=== PATIENT | male | born 1965 | race Caucasian/White ===

== ENCOUNTER → 2016-09-14 | Outpatient (REF) | payer BC ==
[~2016-09-14] MED LIST: GLUC500T OR; LISI20TA5 OR; PRAV20TA2 OR; VITAMIN B1 PO
== END ==
LOC: M LAB REF 16:50
PROVIDERS: ATTEND Nurse Practitioner Family
DX: K14.6 Glossodynia (principal)

== ENCOUNTER 2017-07-02 17:42 | Emergency (ER) | payer BC ==
[~2017-07-02] VITALS: Ht 177.8 cm; Wt 109.1 kg
[2017-07-02] MEDS ORDERED: TRUL0.5I SQ (18:05)
[2017-07-02] MEDS ORDERED: METF10004 (18:05)
[2017-07-02] MEDS ORDERED: GLIP1TAB51 (18:05)
--- NOTE | 2017-07-02 19:29 | REP ---
Head CT without contrast: History: Dizziness. Comparison study: Comparison CT study June 28, 2013. CT findings: Bone window settings demonstrate an intact bony calvarium. There is no evidence of skull fracture or incidental bony calvarial lesion. Mild vascular calcification is seen at the skull base. The visualized paranasal sinuses appear clear. No intraorbital abnormality is seen. On soft tissue window setting images; the lateral, third, and fourth ventricles are normal in size and position. Juarez-white differentiation pattern is normal above and below the tentorium. There are is no evidence of intracranial hemorrhage. No mass, edema, infarction, or midline shift is seen. No extra-axial fluid collection is appreciated. Impression: Mild vascular calcification, otherwise negative noncontrast head CT. Signed by Dennis Peguero MD 07/02/2017 07:19 P
[2017-07-02 19:35] LABS: BASO % 0.4 % (0.0-1.0); EOS # 0.2 10^3/uL (0.0-0.50); EOS % 3.5 % (0.0-3.0); IMMATURE GRANULOCYTE % 0.1 % (0-0); LYMPH # 1.6 10^3/uL (1.5-4.5); MEAN CORPUSCULAR HGB CONC 33.8 g/dl (32.0-36.5); MEAN CORPUSCULAR VOLUME 88.6 fl (80.0-96.0); MONO # 0.6 10^3/uL (0.0-0.8); MONO % 8.8 % (0.0-5.0); NEUTROPHILS # 4.4 10^3/uL (1.8-7.7); NEUTROPHILS % 64.2 % (36.0-66.0); PLATELET COUNT, AUTOMATED 240 10^3/uL (150-450); RED CELL DISTRIBUTION WIDTH 12.6 % (11.5-14.5); WHITE BLOOD COUNT 6.8 10^3/uL (4.0-10.0)
--- NOTE | 2017-07-02 19:58 | REP ---
Portable chest x-ray: Single view. History: Chest pain. Comparison study: April 10, 2015. Findings: EKG monitoring electrodes overlie the chest. Today's view is exposed at a somewhat lordotic angle. The lungs are well inflated and clear. Pulmonary vasculature is not felt to be increased. Heart is not enlarged. Impression: No active disease. Signed by Dennis Peguero MD 07/02/2017 08:36 P
[2017-07-02] MEDS ORDERED: NS 1,000 ML IV ONE (20:00)
[2017-07-02] MEDS ORDERED: MECLIZINE 25 MG TABLET PO ONE (20:00)
[2017-07-02] MEDS ORDERED: ASPIRIN 81 MG CHEW TABLET PO ONE (20:00)
[2017-07-02 20:02] LABS: ALBUMIN 3.9 GM/DL (3.2-5.2); ALKALINE PHOSPHATASE 102 U/L (45-117); ALT/SGPT 35 U/L (12-78); ANION GAP 8 MEQ/L (8-16); AST/SGOT 21 U/L (7-37); BILIRUBIN,DIRECT 0.1 MG/DL (0.0-0.2); BILIRUBIN,TOTAL 0.4 MG/DL (0.2-1.0); BLOOD UREA NITROGEN 14 MG/DL (7-18); CALCIUM LEVEL 9.4 MG/DL (8.5-10.1); CARBON DIOXIDE LEVEL 27 MEQ/L (21-32); CHLORIDE LEVEL 105 MEQ/L (98-107); FREE T4 0.98 NG/DL (0.76-1.46); GLOMERULAR FILTRATION RATE > 60.0 (>56); GLUCOSE, FASTING 119 MG/DL (70-105); POTASSIUM SERUM 4.2 MEQ/L (3.5-5.1); SODIUM LEVEL 140 MEQ/L (136-145); TOTAL PROTEIN 7.8 GM/DL (6.4-8.2)
[2017-07-02 21:21] LABS: INR 0.96
--- NOTE | 2017-07-03 03:20 | REPUSA ---
CLINICAL HISTORY: Dizziness. TECHNIQUE: Three dimensional csuo-iv-pysepx angiography is performed of the [place]. The faheem dy was performed without IV contrast agent. FINDINGS: The supraclinoid portions of the internal carotid arteries are of normal shape. The normal bifurcation is seen. The middle cerebral arteries are unremarkable in appearance. The posterior circu lation is visualized and shows no evidence of occlusion or aneurysm formation. The basilar tip is see n and shows no aneurysm formation. There is no evidence of beading to suggest vasculitis. IMPRESSION: MRA of the [place] is within normal limits. Thank you for your kind referral of this patient.
--- NOTE | 2017-07-03 03:30 | REPUSA ---
CLINICAL HISTORY: Dizziness. TECHNIQUE: MRI of the brain was performed utilizing multiple sequences in axial, coronal and sagittal planes without IV contrast material. COMMENTS: The sella and parasellar region are unremarkable in appearance. The corpus callosum and cerebellar to nsils are of normal configuration and position. There are no intra or extra-axial collections. There is no mass effect or midline shift. There is no evidence of hematoma formation. There is no hydroceph alus. The visualized arterial structures demonstrate normal appearing flow voids. The seventh and eighth ne rve bundles are visualized and are unremarkable in appearance. Several foci of T2/FLAIR hyperintensity are noted in the bilateral periventricular and subcortical wh ite matter compatible with mild chronic white matter ischemic changes. Generalized proportionate dilatation of ventricles and sulci is present compatible with age-appropria te parenchymal atrophy. IMPRESSION: 1. No acute intracranial pathology. 2. Generalized age-appropriate parenchymal atrophy. 3. Mild chronic white matter microvascular ischemic changes. Thank you for your kind referral of this patient.
[2017-07-03 03:42] VITALS: BP 143/77
[2017-07-03] MEDS ORDERED: VALI5TAB PO (03:42)
[2017-07-03] MEDS ORDERED: FLON1SPR (03:42)
--- NOTE | 2017-07-03 05:40 | ECGEPIP ---
Stationary ECG Study [facility] - ED Test Date: 2017-07-02 Pat Name: KATI NIETO Department: Room: - Gender: M Ladler: ASHER : 1965 Requested By: Mumtaz Campoverde Order Number: [id number] Reading MD: Macho Mcgregor Measurements Intervals [place] Rate: 81 P: 7 VT: 243 QRS: 74 QRSD: 105 T: 2 QT: 374 QTc: 435 Interpretive Statements SINUS RHYTHM WITH FIRST DEGREE AV BLOCK INFERIOR MYOCARDIAL INFARCTION, PROBABLY OLD WITH POSTERIOR EXTENSION SIMILAR TO 04/10/15 Electronically Signed On 07-03-2017 5:40:20 EST by Macho Mcgregor
== END 2017-07-03 04:03 | disposition home or self-care (01) ==
LOC: M ED 17:42
DX: H83.02 Labyrinthitis, left ear (principal); I44.0 Atrioventricular block, first degree; E11.9 Type 2 diabetes mellitus without complications; I10 Essential (primary) hypertension; Z88.5 Allergy status to narcotic agent; Z79.899 Other long term (current) drug therapy; Z79.84 Long term (current) use of oral hypoglycemic drugs
CPT/HCPCS: 70450; 70544; 70551; 71010; 80048; 80076; 82550; 82553; 84439; 84443; 85025; 85610; 85730; 93005; 93041; 94760; 96361; 96374; 99285; J3360

== ENCOUNTER → 2018-06-17 | Outpatient (REF) | payer BC ==
[2018-06-18 15:15] LABS: TESTOSTERONE FREE (DIRECT) 7.6 pg/mL (7.2-24.0)
== END ==
LOC: M LAB REF 11:50
DX: R53.83 Other fatigue (principal)
CPT/HCPCS: 84403

== ENCOUNTER → 2018-07-01 | Outpatient (REF) | payer BC ==
[2018-07-01 12:54] LABS: TESTOSTERONE 132 NG/DL (241-827)
== END ==
LOC: M LAB REF 11:58
DX: E29.1 Testicular hypofunction (principal)
CPT/HCPCS: 84403

== ENCOUNTER 2018-08-28 09:10 | Day surgery (SDC) | payer BC ==
[~2018-08-28] VITALS: Ht 177.8 cm; Wt 111.6 kg
[~2018-08-28 09:10] MED LIST changes: +FLON1SPR; +GLIP10TA18; +GLIP5TAB20 PO; +LISI-538 PO; +METF10004; +METF10004 PO; +NS 1,000 ML IV ONE; +PRAV10TA4 PO; +TEST200I14 IM; +TRUL0.5I SC; +TRUL0.5I SQ; +VALI5TAB PO
[2018-08-28] MEDS ORDERED: LIDOCAINE 2% INJ 100 MG/5 ML SDV (FOR ANES.) As Ordered ONE (11:01)
[2018-08-28] MEDS ORDERED: PROPOFOL 500 MG/50 ML VIAL As Ordered ONE (11:01)
[2018-08-28] MEDS ORDERED: fentaNYL 100 MCG/2 ML INJECTION (J3010) As Ordered ONE (11:01)
--- NOTE | 2018-08-28 11:16 | ROOR ---
Patient Name: Cornelius Gaitan Procedure Date: 08/28/2018 10:53 AM Date of : 1965 Age: 52 Room: [facility] Gender: Male Note Status: Finalized Procedure: Upper Endoscopy + Biopsies + Hemoclip Indications: Heartburn, Follow-up of peptic ulcer Providers: Stewart Gonzales MD Referring MD: Natacha Hyde NP Requesting Provider: Medicines: Monitored Anesthesia Care Complications: No immediate complications. Procedure: Pre-Anesthesia Assessment: - The heart rate, respiratory rate, oxygen saturations, blood pressure, adequacy of pulmonary ventilation, and response to care were monitored throughout the procedure. The Endoscope was introduced through the mouth, and advanced to the second part of duodenum. The upper GI endoscopy was accomplished without difficulty. The patient tolerated the procedure well. Findings: The Z-line was irregular and was found 40 cm from the incisors. Multiple biopsies were obtained with cold forceps for evaluation to rule out Ashford's Esophagus randomly at the gastroesophageal junction. A small hiatal hernia was present. One non-bleeding cratered gastric ulcer with pigmented material was found on the greater curvature of the stomach. Biopsies were taken with a cold forceps for histology. Biopsies were taken with a cold forceps for Helicobacter pylori testing. To prevent bleeding after the biopsy, one hemostatic clip was successfully placed. There was no bleeding at the end of the procedure. The exam of the duodenum was otherwise normal. Impression: - Z-line irregular, 40 cm from the incisors. - Small hiatal hernia. - Non-bleeding gastric ulcer with pigmented material. Biopsied. Clip was placed. - Multiple biopsies were obtained at the gastroesophageal junction. - The examination was otherwise normal. Recommendation: - Patient has a contact number available for emergencies. The signs and symptoms of potential delayed complications were discussed with the patient. Return to normal activities tomorrow. Written discharge instructions were provided to the patient. - Discharge patient to home. - Follow an antireflux regimen. - Use Prilosec (omeprazole) 40 mg PO daily. - Await pathology results. - Check Portal Online for Path Results.([email or web address]) - Telephone GI clinic for pathology results in 1 week. - The findings and recommendations were discussed with the patient's family. Stewart Gonzales MD Stewart Gonzales MD 08/28/2018 11:16:25 AM This report has been signed electronically. Number of Addenda: 0 Note Initiated On: 08/28/2018 10:53 AM Estimated Blood Loss: Estimated blood loss: none.
--- NOTE | 2018-08-28 11:34 | ROOR ---
Patient Name: Cornelius Gaitan Procedure Date: 08/28/2018 10:54 AM Date of : 1965 Age: 52 Room: [facility] Gender: Male Note Status: Finalized Procedure: Total Colonoscopy to the Cecum + Cold Snare Polypectomy Indications: Screening for colorectal malignant neoplasm Providers: Stewart Gonzales MD Referring MD: Natacha Hyde NP Requesting Provider: Medicines: Monitored Anesthesia Care Complications: No immediate complications. Procedure: Pre-Anesthesia Assessment: - The heart rate, respiratory rate, oxygen saturations, blood pressure, adequacy of pulmonary ventilation, and response to care were monitored throughout the procedure. The Colonoscope was introduced through the anus and advanced to the cecum, identified by appendiceal orifice and ileocecal valve. The colonoscopy was performed without difficulty. The patient tolerated the procedure well. The quality of the bowel preparation was excellent. Findings: The perianal and digital rectal examinations were normal. Non-bleeding internal hemorrhoids were found during retroflexion. The hemorrhoids were small and Grade I (internal hemorrhoids that do not prolapse). A small polyp was found in the ascending colon. The polyp was sessile. The polyp was removed with a jumbo cold forceps. Resection and retrieval were complete. The exam was otherwise without abnormality on direct and retroflexion views. Impression: - Non-bleeding internal hemorrhoids. - One small polyp in the ascending colon, removed with a jumbo cold forceps. Resected and retrieved. - The examination was otherwise normal on direct and retroflexion views. - The exam was otherwise normal to the cecum. Recommendation: - Patient has a contact number available for emergencies. The signs and symptoms of potential delayed complications were discussed with the patient. Return to normal activities tomorrow. Written discharge instructions were provided to the patient. - High fiber diet. - Discharge patient to home. - Continue present medications. - Await pathology results. - Telephone GI clinic for pathology results in 1 week. - Repeat colonoscopy in 5 years for surveillance based on pathology results. - Return to referring physician. - Check Portal Online for Path Results.([email or web address] - The findings and recommendations were discussed with the patient's family. Stewart Gonzales MD Stewart Gonzales MD 08/28/2018 11:33:41 AM This report has been signed electronically. Number of Addenda: 0 Note Initiated On: 08/28/2018 10:54 AM Estimated Blood Loss: Estimated blood loss: none.
[2018-08-28 12:00] VITALS: BP 127/77
== END 2018-08-28 12:04 | disposition home or self-care (01) ==
LOC: M OPP 09:10
PROVIDERS: ATTEND Internal Medicine Gastroenterology
DX: Z12.11 Encounter for screening for malignant neoplasm of colon (principal); R12 Heartburn; K27.9 Peptic ulcer, site unspecified, unspecified as acute or chronic, without hemorrhage or perforation; D12.2 Benign neoplasm of ascending colon; K64.0 First degree hemorrhoids; K22.8 Other specified diseases of esophagus; K44.9 Diaphragmatic hernia without obstruction or gangrene; E11.9 Type 2 diabetes mellitus without complications; Z79.84 Long term (current) use of oral hypoglycemic drugs; Z79.899 Other long term (current) drug therapy; Z88.5 Allergy status to narcotic agent
CPT/HCPCS: 43239; 45380; 88305; J3010

== ENCOUNTER → 2018-09-09 | Outpatient (REF) | payer BC ==
[~2018-09-09] MED LIST changes: -NS 1,000 ML IV ONE
== END ==
LOC: M LAB REF 16:38
PROVIDERS: ATTEND Nurse Practitioner Adult Health
DX: E29.1 Testicular hypofunction (principal)

== ENCOUNTER → 2018-12-23 | Outpatient (REF) | payer BC ==
[2018-12-25 00:08] LABS: TESTOSTERONE FREE (DIRECT) 16.5 pg/mL (7.2-24.0)
== END ==
LOC: M LAB REF 12:10
PROVIDERS: ATTEND Nurse Practitioner Adult Health
DX: E29.1 Testicular hypofunction (principal)

== ENCOUNTER → 2020-09-15 | Outpatient (REF) | payer BC, OTHER ==
[~2020-09-15] MED LIST changes: -LISI-538 PO; +LISI20TA33 PO
[2020-09-17 18:08] LABS: TESTOSTERONE FREE (DIRECT) 10.1 pg/mL (7.2-24.0)
== END ==
LOC: M LAB REF 16:32
PROVIDERS: ATTEND Nurse Practitioner Adult Health
DX: E29.1 Testicular hypofunction (principal)

== ENCOUNTER → 2021-01-17 | Outpatient (REF) | payer BC, OTHER | LOC: M LAB REF 16:23 | PROVIDERS: ATTEND Nurse Practitioner Adult Health | DX: E29.1 Testicular hypofunction (principal) ==

== ENCOUNTER 2022-07-16 16:57 | Emergency (ER) | payer BC, OTHER ==
[~2022-07-16] VITALS: Ht 177.8 cm; Wt 110.5 kg
[2022-07-16] MEDS ORDERED: OZEM2INJ SQ (17:16)
[2022-07-16] MEDS ORDERED: GABA-282 PO (17:16)
[2022-07-17] MEDS ORDERED: NAPROXEN 250 MG TAB PO ONE (01:30)
[2022-07-17] MEDS ORDERED: NAPR-837 PO (01:36)
[2022-07-17 01:56] VITALS: BP 119/76
== END 2022-07-17 02:25 | disposition home or self-care (01) ==
LOC: M ED 16:57
DX: S63.92XA Sprain of unspecified part of left wrist and hand, initial encounter (principal); E11.9 Type 2 diabetes mellitus without complications; Z79.84 Long term (current) use of oral hypoglycemic drugs; Z79.811 Long term (current) use of aromatase inhibitors; Z79.899 Other long term (current) drug therapy; Z88.5 Allergy status to narcotic agent

== ENCOUNTER → 2022-12-08 | Outpatient (CLI) | payer OTHER ==
[~2022-12-08] MED LIST changes: +GABA-282 PO; +NAPR-837 PO; +OZEM2INJ SQ
== END ==
LOC: M PLAIMG 14:30
PROVIDERS: ATTEND Orthopaedic Surgery Hand Surgery
DX: S69.92XD Unspecified injury of left wrist, hand and finger(s), subsequent encounter (principal)

== ENCOUNTER → 2023-01-11 | Outpatient (CLI) | payer OTHER | LOC: M PAIN 09:30 | PROVIDERS: ATTEND Nurse Practitioner Family | DX: M54.41 Lumbago with sciatica, right side (principal); M54.42 Lumbago with sciatica, left side; I10 Essential (primary) hypertension; E11.9 Type 2 diabetes mellitus without complications; E78.00 Pure hypercholesterolemia, unspecified; Z79.84 Long term (current) use of oral hypoglycemic drugs; Z79.899 Other long term (current) drug therapy; Z88.5 Allergy status to narcotic agent ==

== ENCOUNTER → 2023-01-25 | Outpatient (CLI) | payer OTHER | LOC: M PAIN 15:15 | PROVIDERS: ATTEND Nurse Practitioner Family | DX: M51.16 Intervertebral disc disorders with radiculopathy, lumbar region (principal); I10 Essential (primary) hypertension; E11.9 Type 2 diabetes mellitus without complications; Z88.5 Allergy status to narcotic agent; Z79.84 Long term (current) use of oral hypoglycemic drugs; Z79.85 Long-term (current) use of injectable non-insulin antidiabetic drugs; Z79.899 Other long term (current) drug therapy ==

== ENCOUNTER → 2023-02-19 | Outpatient (CLI) | payer OTHER | LOC: M PAIN 08:30 | PROVIDERS: ATTEND Nurse Practitioner Family | DX: M51.16 Intervertebral disc disorders with radiculopathy, lumbar region (principal); I10 Essential (primary) hypertension; E11.9 Type 2 diabetes mellitus without complications; E78.00 Pure hypercholesterolemia, unspecified; Z79.85 Long-term (current) use of injectable non-insulin antidiabetic drugs; Z79.02 Long term (current) use of antithrombotics/antiplatelets; Z79.84 Long term (current) use of oral hypoglycemic drugs; Z79.899 Other long term (current) drug therapy; Z88.5 Allergy status to narcotic agent ==

== ENCOUNTER → 2023-02-27 | Outpatient (CLI) | payer OTHER | LOC: M SOG 07:51 | PROVIDERS: ATTEND Physician Assistant | DX: M25.562 Pain in left knee (principal); Z53.9 Procedure and treatment not carried out, unspecified reason ==

== ENCOUNTER → 2023-04-03 | Outpatient (CLI) | payer OTHER | LOC: M PAIN 16:00 | PROVIDERS: ATTEND Nurse Practitioner Family | DX: M51.16 Intervertebral disc disorders with radiculopathy, lumbar region (principal); E11.9 Type 2 diabetes mellitus without complications; G47.30 Sleep apnea, unspecified; I10 Essential (primary) hypertension; Z88.5 Allergy status to narcotic agent; Z79.84 Long term (current) use of oral hypoglycemic drugs; Z79.85 Long-term (current) use of injectable non-insulin antidiabetic drugs; Z79.899 Other long term (current) drug therapy ==

== ENCOUNTER → 2023-04-30 | Outpatient (REF) | payer BC, OTHER ==
[~2023-04-30] MED LIST changes: +ATOR80TA59 PO; +BAYE81TA7 PO; +FINE10TA PO; +PERC5TAB12 PO; +SEMA1PEN2 SQ
[2023-05-01 16:08] LABS: TESTOSTERONE FREE (DIRECT) 1.9 pg/mL (7.2-24.0)
== END ==
LOC: M LAB REF 12:13
PROVIDERS: ATTEND Nurse Practitioner Adult Health
DX: E29.1 Testicular hypofunction (principal)

== ENCOUNTER → 2023-05-10 | Outpatient (CLI) | payer OTHER ==
[~2023-05-10] MED LIST changes: +NORCO, ANEXSIA 5/325MG TABLET (HYDROcodone/ACETAMINOPHEN) As Ordered ONE; +TRIAMCINOLONE ACETONIDE SUSP 40MG/ML 1ML VIAL As Ordered ONE; +diazePAM 5MG TABLET As Ordered ONE
== END ==
LOC: M PAIN 14:15
PROVIDERS: ATTEND Anesthesiology
DX: M79.18 Myalgia, other site (principal); G89.29 Other chronic pain; E11.9 Type 2 diabetes mellitus without complications; Z88.5 Allergy status to narcotic agent; Z79.84 Long term (current) use of oral hypoglycemic drugs; Z79.899 Other long term (current) drug therapy
CPT/HCPCS: 20552; J0665; J3301

== ENCOUNTER 2023-05-14 06:43 | Day surgery (SDC) | payer OTHER ==
[~2023-05-14] VITALS: Ht 177.8 cm; Wt 108.0 kg
[~2023-05-14 06:43] MED LIST changes: -FINE10TA PO; -NORCO, ANEXSIA 5/325MG TABLET (HYDROcodone/ACETAMINOPHEN) As Ordered ONE; -PERC5TAB12 PO; -TRIAMCINOLONE ACETONIDE SUSP 40MG/ML 1ML VIAL As Ordered ONE; +ceFAZolin SOD 2 GM in IV 1 EA IV ONE; -diazePAM 5MG TABLET As Ordered ONE
[2023-05-14] MEDS ORDERED: FINE10TA PO (07:30)
[2023-05-14] MEDS ORDERED: LR 1,000 ML IV SCH ×2 (07:40→09:55)
[2023-05-14] MEDS ORDERED: propofoL 200 MG/20 ML VIAL As Ordered ONE (08:00)
[2023-05-14] MEDS ORDERED: LIDOCAINE 2% 100MG/5ML SDV (FOR ANES.) As Ordered ONE (08:00)
[2023-05-14] MEDS ORDERED: KETOROLAC 60MG 2ML VIAL As Ordered ONE (08:00)
[2023-05-14] MEDS ORDERED: ONDANSETRON 4MG 2ML VIAL As Ordered ONE (08:00)
[2023-05-14] MEDS ORDERED: fentaNYL 100 MCG/2 ML INJECTION As Ordered ONE (08:01)
[2023-05-14] MEDS ORDERED: MIDAZOLAM INJ 2MG/2ML VIAL As Ordered ONE (08:01)
[2023-05-14] MEDS ORDERED: BACITRACIN OINTMENT 30GM TUBE As Ordered ONE (09:40)
[2023-05-14] MEDS ORDERED: oxyCODONE 5MG TAB PO PRN (09:55)
[2023-05-14] MEDS ORDERED: fentaNYL 100 MCG/2 ML INJECTION IV PRN (09:55)
[2023-05-14] MEDS ORDERED: ONDANSETRON 4MG 2ML VIAL IV PRN (09:55)
[2023-05-14] MEDS ORDERED: INSULIN LISPRO (NovoLOG) PER UNIT SC PRN (10:05)
[2023-05-14] MEDS ORDERED: PERC5TAB12 PO (10:05)
[2023-05-14] MEDS: HYDROMORPHONE HCL 0.5 MG/ 0.5 ML SYRINGE IV PRN ×4 (10:12→10:35)
[2023-05-14 12:15] VITALS: BP 135/79; TEMP 98.2; O2SAT 97
[2023-05-14] MEDS ORDERED: ONDANSETRON 4MG 2ML VIAL IV ONE (12:25)
== END 2023-05-14 12:26 | disposition home or self-care (01) ==
LOC: M SDC 06:43
PROVIDERS: ATTEND Orthopaedic Surgery Hand Surgery
DX: M25.532 Pain in left wrist (principal); S56.512A Strain of other extensor muscle, fascia and tendon at forearm level, left arm, initial encounter; X58.XXXA Exposure to other specified factors, initial encounter; I10 Essential (primary) hypertension; E78.00 Pure hypercholesterolemia, unspecified; E11.21 Type 2 diabetes mellitus with diabetic nephropathy; E11.69 Type 2 diabetes mellitus with other specified complication; G47.33 Obstructive sleep apnea (adult) (pediatric); I25.119 Atherosclerotic heart disease of native coronary artery with unspecified angina pectoris; Z98.61 Coronary angioplasty status; Z95.5 Presence of coronary angioplasty implant and graft; Z79.02 Long term (current) use of antithrombotics/antiplatelets; Z79.84 Long term (current) use of oral hypoglycemic drugs; Z79.899 Other long term (current) drug therapy; Z79.82 Long term (current) use of aspirin
CPT/HCPCS: 25270; 88304; J0665; J0690; J1100; J1170; J1815; J1885; J2250; J2405; J3010

== ENCOUNTER → 2023-05-22 | Outpatient (CLI) | payer OTHER ==
[~2023-05-22] MED LIST changes: +FINE10TA PO; +PERC5TAB12 PO; -ceFAZolin SOD 2 GM in IV 1 EA IV ONE
== END ==
LOC: M PAIN 16:00
PROVIDERS: ATTEND Nurse Practitioner Family
DX: M79.18 Myalgia, other site (principal); M51.16 Intervertebral disc disorders with radiculopathy, lumbar region; G89.29 Other chronic pain; I10 Essential (primary) hypertension; E11.9 Type 2 diabetes mellitus without complications; E78.00 Pure hypercholesterolemia, unspecified; Z79.02 Long term (current) use of antithrombotics/antiplatelets; Z79.82 Long term (current) use of aspirin; Z79.84 Long term (current) use of oral hypoglycemic drugs; Z79.899 Other long term (current) drug therapy; Z88.5 Allergy status to narcotic agent

== ENCOUNTER → 2023-06-14 | Outpatient (CLI) | payer OTHER | LOC: M PAIN 10:00 | PROVIDERS: ATTEND Nurse Practitioner Family | DX: M51.16 Intervertebral disc disorders with radiculopathy, lumbar region (principal); G89.29 Other chronic pain; Z88.5 Allergy status to narcotic agent; Z79.84 Long term (current) use of oral hypoglycemic drugs; Z79.85 Long-term (current) use of injectable non-insulin antidiabetic drugs; Z79.899 Other long term (current) drug therapy ==

== ENCOUNTER → 2023-08-14 | Outpatient (CLI) | payer OTHER | LOC: M PAIN 16:30 | PROVIDERS: ATTEND Nurse Practitioner Family | DX: M51.16 Intervertebral disc disorders with radiculopathy, lumbar region (principal); G89.29 Other chronic pain; I10 Essential (primary) hypertension; E11.9 Type 2 diabetes mellitus without complications; E78.00 Pure hypercholesterolemia, unspecified; Z79.02 Long term (current) use of antithrombotics/antiplatelets; Z79.84 Long term (current) use of oral hypoglycemic drugs; Z79.899 Other long term (current) drug therapy; Z88.5 Allergy status to narcotic agent ==

== ENCOUNTER → 2023-08-31 | Outpatient (CLI) | payer OTHER | LOC: M PAIN 13:00 | PROVIDERS: ATTEND Anesthesiology | DX: M51.16 Intervertebral disc disorders with radiculopathy, lumbar region (principal); G89.29 Other chronic pain; I10 Essential (primary) hypertension; E11.9 Type 2 diabetes mellitus without complications; E78.00 Pure hypercholesterolemia, unspecified; I25.10 Atherosclerotic heart disease of native coronary artery without angina pectoris; Z79.82 Long term (current) use of aspirin; Z79.02 Long term (current) use of antithrombotics/antiplatelets; Z79.84 Long term (current) use of oral hypoglycemic drugs; Z79.899 Other long term (current) drug therapy; Z88.5 Allergy status to narcotic agent ==

== ENCOUNTER 2023-09-28 08:58 | Day surgery (SDC) | payer OTHER ==
[~2023-09-28] VITALS: Ht 177.8 cm; Wt 113.0 kg
[~2023-09-28 08:58] MED LIST changes: +BACITRACIN OINTMENT 30GM TUBE As Ordered ONE; +CLOP75TA2 PO; +TIRZ5PEN PO
[2023-09-28] MEDS: SODIUM BICARBONATE 8.4% INJ 50MEQ 50ML VIAL XX ONE (09:40)
[2023-09-28] MEDS: LIDOCAINE W/EPINEPHRINE 1% 20ML VIAL XX ONE (09:40)
[2023-09-28 10:56] VITALS: BP 141/87; TEMP 97.8; O2SAT 94
== END 2023-09-28 11:18 | disposition home or self-care (01) ==
LOC: M SDC 08:58
PROVIDERS: ATTEND Orthopaedic Surgery Hand Surgery
DX: M65.4 Radial styloid tenosynovitis [de Quervain] (principal); E11.9 Type 2 diabetes mellitus without complications; I10 Essential (primary) hypertension; E78.00 Pure hypercholesterolemia, unspecified; Z95.5 Presence of coronary angioplasty implant and graft; G47.30 Sleep apnea, unspecified; Z79.899 Other long term (current) drug therapy; Z79.82 Long term (current) use of aspirin; Z79.84 Long term (current) use of oral hypoglycemic drugs; Z79.85 Long-term (current) use of injectable non-insulin antidiabetic drugs; Z88.5 Allergy status to narcotic agent

== ENCOUNTER → 2023-10-10 | Outpatient (CLI) | payer OTHER ==
[~2023-10-10] MED LIST changes: -BACITRACIN OINTMENT 30GM TUBE As Ordered ONE
== END ==
LOC: M PAIN 13:30
PROVIDERS: ATTEND Anesthesiology
DX: M51.16 Intervertebral disc disorders with radiculopathy, lumbar region (principal); G89.29 Other chronic pain; I10 Essential (primary) hypertension; E11.9 Type 2 diabetes mellitus without complications; G47.30 Sleep apnea, unspecified; Z95.5 Presence of coronary angioplasty implant and graft; Z79.01 Long term (current) use of anticoagulants; Z79.02 Long term (current) use of antithrombotics/antiplatelets; Z79.82 Long term (current) use of aspirin; Z79.84 Long term (current) use of oral hypoglycemic drugs; Z79.899 Other long term (current) drug therapy; Z88.5 Allergy status to narcotic agent

== ENCOUNTER → 2023-10-30 | Outpatient (CLI) | payer OTHER | LOC: M PAIN 16:30 | PROVIDERS: ATTEND Nurse Practitioner Family | DX: M51.16 Intervertebral disc disorders with radiculopathy, lumbar region (principal); G89.29 Other chronic pain; I10 Essential (primary) hypertension; E11.9 Type 2 diabetes mellitus without complications; E78.00 Pure hypercholesterolemia, unspecified; I25.10 Atherosclerotic heart disease of native coronary artery without angina pectoris; Z79.82 Long term (current) use of aspirin; Z79.02 Long term (current) use of antithrombotics/antiplatelets; Z79.84 Long term (current) use of oral hypoglycemic drugs; Z79.899 Other long term (current) drug therapy; Z88.5 Allergy status to narcotic agent ==

== ENCOUNTER 2023-11-17 02:04 | Emergency (ER) | payer BC, OTHER ==
[~2023-11-17] VITALS: Ht 177.8 cm; Wt 113.6 kg
[2023-11-17] MEDS ORDERED: BENZ200C70 PO (02:33)
[2023-11-17] MEDS ORDERED: PRED20TA PO (02:33)
[2023-11-17] MEDS ORDERED: ALBU2.5V10 INH (02:33)
[2023-11-17] MEDS ORDERED: MORPHINE 2 MG/ML 1ML VIAL As Ordered ONE (02:36)
[2023-11-17] MEDS: ONDANSETRON 4MG 2ML VIAL IV ONE (02:57)
[2023-11-17] MEDS: MORPHINE 4 MG/ML 1ML VIAL IV PRN (02:58)
[2023-11-17] MEDS: KETOROLAC 30 MG/ML 1ML VIAL IV ONE (03:06)
[2023-11-17 03:30] LABS: BASO % 0.1 % (0.0-1.0); EOS % 0.5 % (0.0-3.0); HEMATOCRIT 45.6 % (42.0-52.0); HEMOGLOBIN 15.9 g/dl (13.5-17.5); LYMPH # 1.6 10^3/uL (1.5-5.0); LYMPH % 19.2 % (24.0-44.0); MEAN CORPUSCULAR HEMOGLOBIN 31.2 pg (27.0-33.0); MEAN CORPUSCULAR HGB CONC 34.9 g/dl (32.0-36.5); MEAN CORPUSCULAR VOLUME 89.4 fl (80.0-96.0); MONO # 0.3 10^3/uL (0.0-0.8); MONO % 3.2 % (2.0-8.0); NEUTROPHILS # 6.2 10^3/uL (1.5-8.5); NEUTROPHILS % 76.5 % (36.0-66.0); PLATELET COUNT, AUTOMATED 227 10^3/uL (150-450); WHITE BLOOD COUNT 8.1 10^3/uL (4.0-10.0)
[2023-11-17 03:57] LABS: BLOOD UREA NITROGEN 29 MG/DL (9-23); CALCIUM LEVEL 9.5 MG/DL (8.5-10.1); CARBON DIOXIDE LEVEL 22 MMOL/L (20-31); CHLORIDE LEVEL 104 MMOL/L (98-107); CREATININE FOR GFR 0.84 MG/DL (0.70-1.30); GLOMERULAR FILTRATION RATE > 60.0 (>56); GLUCOSE, FASTING 350 MG/DL (60-100); POTASSIUM SERUM 4.9 MMOL/L (3.5-5.1); SODIUM LEVEL 137 MMOL/L (136-145)
[2023-11-17] MEDS ORDERED: PERC5TAB12 PO (05:54)
[2023-11-17] MEDS ORDERED: KETO10TAB PO (05:54)
[2023-11-17] MEDS ORDERED: FLOM0.4C39 PO (05:54)
[2023-11-17 06:04] VITALS: BP 151/71; TEMP 97.7; O2SAT 94
[2023-11-17] MEDS: TAMSULOSIN 0.4 MG CAP PO ONE (06:06)
[2023-11-17] MEDS: OXYCODONE/APAP 5MG/325MG(HOME DOSE PACK) PO ONE (06:09)
== END 2023-11-17 06:21 | disposition home or self-care (01) ==
LOC: M ED 02:04
DX: N20.1 Calculus of ureter (principal); E11.9 Type 2 diabetes mellitus without complications; E78.5 Hyperlipidemia, unspecified; F10.10 Alcohol abuse, uncomplicated; Z86.79 Personal history of other diseases of the circulatory system; Z87.442 Personal history of urinary calculi; Z88.5 Allergy status to narcotic agent; Z79.52 Long term (current) use of systemic steroids; Z79.82 Long term (current) use of aspirin; Z79.02 Long term (current) use of antithrombotics/antiplatelets; Z79.811 Long term (current) use of aromatase inhibitors; Z79.4 Long term (current) use of insulin; Z79.899 Other long term (current) drug therapy
CPT/HCPCS: 74176; 76870; 80048; 81001; 85025; 93976; 96374; 96375; 99284; J1885; J2405

== ENCOUNTER → 2023-11-20 | Outpatient (REF) | payer BC ==
[~2023-11-20] MED LIST changes: +ALBU2.5V10 INH; +BENZ200C70 PO; +FLOM0.4C39 PO; +KETO10TAB PO; +PRED20TA PO
== END ==
LOC: M LAB REF 16:23
PROVIDERS: ATTEND Nurse Practitioner Adult Health
DX: N20.0 Calculus of kidney (principal)

== ENCOUNTER → 2023-12-10 | Outpatient (REF) | payer BC ==
[~2023-12-10] MED LIST changes: +ALBU10.7 INH; +GLIP10TA18 PO; +LISI10TA22 PO
[2023-12-12 10:11] LABS: TESTOSTERONE FREE (DIRECT) 4.2 pg/mL (7.2-24.0)
[2023-12-12 23:07] LABS: LDL DIRECT 67 mg/dL (0-99)
== END ==
LOC: M LAB REF 16:09
PROVIDERS: ATTEND Nurse Practitioner Adult Health
DX: E78.00 Pure hypercholesterolemia, unspecified (principal); E29.1 Testicular hypofunction

== ENCOUNTER 2023-12-14 07:04 | Day surgery (SDC) | payer OTHER ==
[~2023-12-14] VITALS: Ht 177.8 cm; Wt 112.0 kg
[2023-12-14] MEDS ORDERED: fentaNYL 100 MCG/2 ML INJECTION As Ordered ONE (07:27)
[2023-12-14] MEDS ORDERED: MIDAZOLAM INJ 2MG/2ML VIAL As Ordered ONE (07:27)
[2023-12-14] MEDS ORDERED: ACETAMINOPHEN 1000MG 100ML IV BAG As Ordered ONE (07:28)
[2023-12-14] MEDS ORDERED: ONDANSETRON 4MG 2ML VIAL As Ordered ONE (07:28)
[2023-12-14] MEDS ORDERED: propofoL 200 MG/20 ML VIAL As Ordered ONE (07:28)
[2023-12-14] MEDS ORDERED: LIDOCAINE 2% 100MG/5ML SDV (FOR ANES.) As Ordered ONE (07:28)
[2023-12-14] MEDS ORDERED: KETOROLAC 60MG 2ML VIAL As Ordered ONE (07:28)
[2023-12-14] MEDS ORDERED: LR 1,000 ML IV SCH (07:50)
[2023-12-14] MEDS ORDERED: KETAMINE HCL 200MG/20ML VIAL As Ordered ONE (07:58)
[2023-12-14] MEDS ORDERED: GLYCOPYRROLATE INJ 0.2 MG/ML 2 ML VIAL As Ordered ONE (07:59)
[2023-12-14] MEDS: BACITRACIN OINTMENT 30GM TUBE As Ordered ONE (08:54)
[2023-12-14 09:10] VITALS: BP 120/60; TEMP 97; O2SAT 97
== END 2023-12-14 09:40 | disposition home or self-care (01) ==
LOC: M SDC 07:04
PROVIDERS: ATTEND Orthopaedic Surgery Hand Surgery
DX: G56.02 Carpal tunnel syndrome, left upper limb (principal); E11.9 Type 2 diabetes mellitus without complications; I10 Essential (primary) hypertension; E78.00 Pure hypercholesterolemia, unspecified; G47.30 Sleep apnea, unspecified; Z95.5 Presence of coronary angioplasty implant and graft; Z79.899 Other long term (current) drug therapy; Z79.82 Long term (current) use of aspirin; Z79.84 Long term (current) use of oral hypoglycemic drugs; Z79.85 Long-term (current) use of injectable non-insulin antidiabetic drugs; Z88.5 Allergy status to narcotic agent
CPT/HCPCS: 29848; J0131; J0665; J1100; J1885; J2250; J2405; J3010

== ENCOUNTER → 2023-12-26 | Outpatient (CLI) | payer OTHER | LOC: M PAIN 15:00 | PROVIDERS: ATTEND Anesthesiology | DX: M51.16 Intervertebral disc disorders with radiculopathy, lumbar region (principal); Z53.9 Procedure and treatment not carried out, unspecified reason ==

== ENCOUNTER → 2024-01-23 | Outpatient (CLI) | payer OTHER | LOC: M PAIN 08:30 | PROVIDERS: ATTEND Anesthesiology | DX: M54.50 Low back pain, unspecified (principal); M79.18 Myalgia, other site; Z79.82 Long term (current) use of aspirin ==

== ENCOUNTER → 2024-02-14 | Outpatient (CLI) | payer OTHER | LOC: M PAIN 14:45 | PROVIDERS: ATTEND Nurse Practitioner Family | DX: M51.16 Intervertebral disc disorders with radiculopathy, lumbar region (principal); G89.29 Other chronic pain; I10 Essential (primary) hypertension; E11.9 Type 2 diabetes mellitus without complications; E78.00 Pure hypercholesterolemia, unspecified; I25.10 Atherosclerotic heart disease of native coronary artery without angina pectoris; Z79.82 Long term (current) use of aspirin; Z79.02 Long term (current) use of antithrombotics/antiplatelets; Z79.84 Long term (current) use of oral hypoglycemic drugs; Z79.899 Other long term (current) drug therapy; Z88.5 Allergy status to narcotic agent ==

== ENCOUNTER → 2024-04-22 | Outpatient (CLI) | payer BC ==
[~2024-04-22] MED LIST changes: +TIRZ12.5 SQ
== END ==
LOC: M WUC 13:26
PROVIDERS: ATTEND Physician Assistant
DX: Z01.818 Encounter for other preprocedural examination (principal)

== ENCOUNTER → 2024-04-24 | Day surgery (SDC) | payer BC ==
[~2024-04-24] VITALS: Ht 177.8 cm; Wt 109.5 kg
[~2024-04-24] MED LIST changes: +KETAMINE HCL 200MG/20ML VIAL As Ordered ONE; +LIDOCAINE 2% 100MG/5ML SDV (FOR ANES.) As Ordered ONE; +LR 1,000 ML IV SCH; +ceFAZolin SOD 2 GM in IV 1 EA IV ONE; +propofoL 200 MG/20 ML VIAL As Ordered ONE
[2024-04-24 06:30] VITALS: BP 133/82; TEMP 96.6; O2SAT 96
== END | disposition home or self-care (01) ==
LOC: M SDC 06:02
PROVIDERS: ATTEND Urology
DX: N20.0 Calculus of kidney (principal); Z53.8 Procedure and treatment not carried out for other reasons

== ENCOUNTER → 2024-05-16 | Outpatient (REF) | payer BC ==
[~2024-05-16] MED LIST changes: +GABA-1172 PO; -GABA-282 PO; -KETAMINE HCL 200MG/20ML VIAL As Ordered ONE; -LIDOCAINE 2% 100MG/5ML SDV (FOR ANES.) As Ordered ONE; -LR 1,000 ML IV SCH; +OXYB5TAB14 PO; -ceFAZolin SOD 2 GM in IV 1 EA IV ONE; -propofoL 200 MG/20 ML VIAL As Ordered ONE
[2024-05-16 20:16] LABS: HEMATOCRIT 47.2 % (42.0-52.0); HEMOGLOBIN 15.9 g/dl (13.5-17.5); MEAN CORPUSCULAR HEMOGLOBIN 31.1 pg (27.0-33.0); MEAN CORPUSCULAR HGB CONC 33.7 g/dl (32.0-36.5); MEAN CORPUSCULAR VOLUME 92.2 fl (80.0-96.0); PLATELET COUNT, AUTOMATED 250 10^3/uL (150-450); RED BLOOD COUNT 5.12 10^6/uL (4.30-6.10); WHITE BLOOD COUNT 10.1 10^3/uL (4.0-10.0)
[2024-05-16 20:39] LABS: BLOOD UREA NITROGEN 15 MG/DL (9-23); CALCIUM LEVEL 10.4 MG/DL (8.5-10.1); CARBON DIOXIDE LEVEL 29 MMOL/L (20-31); CHLORIDE LEVEL 106 MMOL/L (98-107); CREATININE FOR GFR 1.14 MG/DL (0.70-1.30); GLOMERULAR FILTRATION RATE > 60.0 (>56); GLUCOSE, FASTING 58 MG/DL (60-100); POTASSIUM SERUM 3.9 MMOL/L (3.5-5.1); SODIUM LEVEL 144 MMOL/L (136-145)
== END ==
LOC: M LAB REF 20:04
PROVIDERS: ATTEND Urology
DX: Z01.818 Encounter for other preprocedural examination (principal); N20.0 Calculus of kidney

== ENCOUNTER → 2024-05-16 | Outpatient (CLI) | payer BC ==
[~2024-05-16] MED LIST changes: -OXYB5TAB14 PO
== END ==
LOC: M RAD 14:21
PROVIDERS: ATTEND Urology
DX: Z01.818 Encounter for other preprocedural examination (principal); N20.0 Calculus of kidney; N39.0 Urinary tract infection, site not specified; N28.1 Cyst of kidney, acquired

== ENCOUNTER 2024-05-21 12:00 | Day surgery (SDC) | payer BC ==
[~2024-05-21] VITALS: Ht 185.4 cm; Wt 103.9 kg
[2024-05-21] MEDS ORDERED: LIDOCAINE 2% 100MG/5ML SDV (FOR ANES.) As Ordered ONE (12:13)
[2024-05-21] MEDS ORDERED: ONDANSETRON 4MG 2ML VIAL As Ordered ONE (12:13)
[2024-05-21] MEDS ORDERED: ACETAMINOPHEN 1000MG 100ML IV BAG As Ordered ONE (12:13)
[2024-05-21] MEDS ORDERED: propofoL 200 MG/20 ML VIAL As Ordered ONE (12:13)
[2024-05-21] MEDS ORDERED: fentaNYL 100 MCG/2 ML INJECTION As Ordered ONE (12:13)
[2024-05-21] MEDS ORDERED: MIDAZOLAM INJ 2MG/2ML VIAL As Ordered ONE (12:13)
[2024-05-21] MEDS: ceFAZolin SOD 2 GM in IV 1 EA IV ONE (13:10)
[2024-05-21] MEDS: ISOVUE-300 61% 100ML VIAL As Ordered ONE (13:25)
[2024-05-21] MEDS ORDERED: LR 1,000 ML IV SCH (14:35)
[2024-05-21] MEDS ORDERED: OXYB5TAB14 PO (14:57)
[2024-05-21] MEDS: oxyCODONE 5MG TAB PO PRN (15:08)
[2024-05-21] MEDS: ONDANSETRON 4MG 2ML VIAL IV PRN (15:08)
[2024-05-21] MEDS: HYDROMORPHONE HCL 0.5 MG/ 0.5 ML SYRINGE IV PRN (15:09)
[2024-05-21] MEDS: fentaNYL 100 MCG/2 ML INJECTION IV PRN (15:50)
[2024-05-21] MEDS: METOCLOPRAMIDE INJ 10MG/2ML VIAL IV PRN (16:27)
[2024-05-21] MEDS: KETOROLAC 30 MG/ML 1ML VIAL IV STA (16:58)
[2024-05-21] MEDS: oxyBUTYnin 5 MG TAB PO STA (17:06)
[2024-05-21 18:00] VITALS: BP 139/89; TEMP 97.1; O2SAT 98
== END 2024-05-21 18:06 | disposition home or self-care (01) ==
LOC: M SDC 12:00
PROVIDERS: ATTEND Urology
DX: N20.2 Calculus of kidney with calculus of ureter (principal); I10 Essential (primary) hypertension; E78.5 Hyperlipidemia, unspecified; E11.9 Type 2 diabetes mellitus without complications; G47.33 Obstructive sleep apnea (adult) (pediatric); Z79.02 Long term (current) use of antithrombotics/antiplatelets; Z79.899 Other long term (current) drug therapy; Z79.82 Long term (current) use of aspirin; Z79.84 Long term (current) use of oral hypoglycemic drugs; Z88.5 Allergy status to narcotic agent; Z98.61 Coronary angioplasty status
CPT/HCPCS: 52356; 76000; 82365; C1769; C1894; C2617; J0131; J0690; J1100; J1171; J1885; J2250; J2405; J2765; J3010; Q9967

== ENCOUNTER → 2024-07-22 | Outpatient (CLI) | payer BC, OTHER ==
[~2024-07-22] MED LIST changes: +OXYB5TAB14 PO
== END ==
LOC: M PAIN 10:15
PROVIDERS: ATTEND Nurse Practitioner Family
DX: M51.16 Intervertebral disc disorders with radiculopathy, lumbar region (principal); G89.29 Other chronic pain; Z79.84 Long term (current) use of oral hypoglycemic drugs; Z79.85 Long-term (current) use of injectable non-insulin antidiabetic drugs; Z79.899 Other long term (current) drug therapy; Z88.5 Allergy status to narcotic agent

== ENCOUNTER → 2024-11-28 | Outpatient (REF) | payer OTHER, BC ==
[~2024-11-28] MED LIST changes: -FLOM0.4C39 PO; +GLIP-318 PO; +GLIP-320; +GLIP-320 PO; -GLIP10TA18; -GLIP10TA18 PO; -GLIP5TAB20 PO; +TAMS-18 PO
[2024-11-28 14:46] LABS: BASO % 0.3 % (0.0-1.0); EOS # 0.2 10^3/uL (0.0-0.5); EOS % 2.5 % (0.0-3.0); HEMATOCRIT 49.7 % (42.0-52.0); HEMOGLOBIN 16.2 g/dl (13.5-17.5); LYMPH % 30.5 % (24.0-44.0); MEAN CORPUSCULAR HEMOGLOBIN 31.4 pg (27.0-33.0); MEAN CORPUSCULAR HGB CONC 32.6 g/dl (32.0-36.5); MEAN CORPUSCULAR VOLUME 96.3 fl (80.0-96.0); MONO # 0.6 10^3/uL (0.0-0.8); MONO % 9.5 % (2.0-8.0); NEUTROPHILS # 3.7 10^3/uL (1.5-8.5); NEUTROPHILS % 56.9 % (36.0-66.0); PLATELET COUNT, AUTOMATED 240 10^3/uL (150-450); RED BLOOD COUNT 5.16 10^6/uL (4.30-6.10); WHITE BLOOD COUNT 6.5 10^3/uL (4.0-10.0)
[2024-11-28 15:14] LABS: BLOOD UREA NITROGEN 16 MG/DL (9-23); CALCIUM LEVEL 9.6 MG/DL (8.3-10.6); CARBON DIOXIDE LEVEL 27 MMOL/L (20-31); CHLORIDE LEVEL 105 MMOL/L (98-107); CREATININE FOR GFR 0.88 MG/DL (0.70-1.30); GLOMERULAR FILTRATION RATE > 90.0 (>49); GLUCOSE, FASTING 89 MG/DL (74-106); POTASSIUM SERUM 4.5 MMOL/L (3.5-5.1); SODIUM LEVEL 141 MMOL/L (136-145)
== END ==
LOC: M LAB REF 13:13 → M LABDRWAD 13:13
PROVIDERS: ATTEND Nurse Practitioner Family
DX: I25.10 Atherosclerotic heart disease of native coronary artery without angina pectoris (principal)

== ENCOUNTER 2025-03-30 07:02 | Emergency (ER) | payer OTHER, BC ==
[~2025-03-30] VITALS: Ht 177.8 cm; Wt 95.9 kg
[~2025-03-30 07:02] MED LIST changes: +PRAV10TA PO; -PRAV10TA4 PO
[2025-03-30] MEDS: IPRATROPIUM 0.5 MG/ALBUTEROL 2.5 MG INH SOL UD 3 ML NEB ONE ×2 (07:36→08:56)
[2025-03-30 07:50] LABS: BASO # 0.0 10^3/uL (0.0-0.2); BASO % 0.4 % (0.0-1.0); EOS # 0.2 10^3/uL (0.0-0.5); EOS % 3.2 % (0.0-3.0); LYMPH # 1.8 10^3/uL (1.5-5.0); LYMPH % 25.9 % (24.0-44.0); MONO # 0.5 10^3/uL (0.0-0.8); MONO % 7.2 % (2.0-8.0); NEUTROPHILS # 4.3 10^3/uL (1.5-8.5); NEUTROPHILS % 63.0 % (36.0-66.0); PLATELET COUNT, AUTOMATED 243 10^3/uL (150-450)
[2025-03-30 08:23] LABS: CALCIUM LEVEL 9.0 MG/DL (8.3-10.6); CARBON DIOXIDE LEVEL 28 MMOL/L (20-31); CHLORIDE LEVEL 106 MMOL/L (98-107); CK-MB VALUE MASS 1.3 NG/ML (<3.6); CPK CREATINE PHOSPHOKINASE 58 U/L (46-171); CREATININE FOR GFR 0.87 MG/DL (0.70-1.30); GLOMERULAR FILTRATION RATE > 90.0 (>49); MB/CK RELATIVE INDEX 2.24 (< OR =4); POTASSIUM SERUM 4.5 MMOL/L (3.5-5.1); SODIUM LEVEL 144 MMOL/L (136-145)
[2025-03-30] MEDS: dexAMETHasone 4 MG/ML 1 ML VIAL IV ONE (08:47)
[2025-03-30 09:30] VITALS: BP 117/60; TEMP 96.5; O2SAT 98
[2025-03-30] MEDS ORDERED: VENTAER INH (09:34)
== END 2025-03-30 09:41 | disposition home or self-care (01) ==
LOC: M ED 07:02
DX: J68.0 Bronchitis and pneumonitis due to chemicals, gases, fumes and vapors (principal); I44.0 Atrioventricular block, first degree; E11.9 Type 2 diabetes mellitus without complications; I10 Essential (primary) hypertension; Z86.79 Personal history of other diseases of the circulatory system; Z88.5 Allergy status to narcotic agent; Z79.52 Long term (current) use of systemic steroids; Z79.82 Long term (current) use of aspirin; Z79.02 Long term (current) use of antithrombotics/antiplatelets; Z79.4 Long term (current) use of insulin; Z79.899 Other long term (current) drug therapy
CPT/HCPCS: 71045; 80048; 82550; 82553; 84484; 85025; 93005; 93041; 94640; 94760; 96374; 99285; J1100

== ENCOUNTER → 2025-05-28 | Outpatient (REF) | payer OTHER, BC ==
[~2025-05-28] MED LIST changes: +VENTAER INH
== END ==
LOC: M LAB REF 17:23
PROVIDERS: ATTEND Nurse Practitioner Adult Health
DX: E29.1 Testicular hypofunction (principal)